=== PATIENT | male | born 1985 | race African-American/Black ===

== ENCOUNTER 2018-07-13 20:17 | Emergency (ER) | payer OTHER ==
[2018-07-13] MEDS ORDERED: Adacel (T-DAP) 0.5 ML VIAL ONE (20:53)
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
[2018-07-13] MEDS ORDERED: Clindamycin 150 MG CAP ONE (21:09)
== END 2018-07-13 21:16 | disposition home or self-care (01) ==
LOC: BURERS 20:17
DX: S61.233A Puncture wound without foreign body of left middle finger without damage to nail, initial encounter (principal); W26.8XXA Contact with other sharp object(s), not elsewhere classified, initial encounter
CPT/HCPCS: 90471; 90715

== ENCOUNTER 2018-07-22 14:15 | Emergency (ER) | payer OTHER | END 2018-07-22 14:35 | disposition home or self-care (01) | LOC: BURERS 14:15 | DX: K57.92 Diverticulitis of intestine, part unspecified, without perforation or abscess without bleeding (principal); F17.210 Nicotine dependence, cigarettes, uncomplicated | CPT/HCPCS: 99283 ==